=== PATIENT | female | born 1985 | race Hispanic/Latino ===

== ENCOUNTER 2021-01-02 08:13 | Emergency (ER) | payer OTHER ==
[~2021-01-02] VITALS: Ht 165.1 cm; Wt 95.7 kg
[~2021-01-02 08:13] MED LIST: ACETAMINOPHEN-1 EAC1 PO; ALBUTEROL SULF8.5 GM INH; AMOXICILLIN500 MG PO; CRUTCH1 EACH; CYCLOBENZAPRINE10 MG PO; CYCLOBENZAPRINE5 MG PO; EXCEDRIN MIGRA1 EAC2 PO; FIORINAL 50-321 EACH PO; HYDROCODON-ACE1 EAC8 PO; IBUPROFEN600 MG PO; NAPROXEN500 MG PO; NORCO 5-325 TA1 EACH PO; NORCO 7.5-3251 EACH PO; PERCOCET 5-3251 EACH PO; PREDNISONE20 MG PO; SULFACETAMIDE S15 ML OU; VENTOLIN HFA18 GM INH; VITAMIN D250000 UNIT PO; ZOFRAN4 MG PO
[2021-01-02] MEDS ORDERED: VENTOLIN HFA18 GM INH (08:31)
== END 2021-01-02 10:16 | disposition home or self-care (01) ==
LOC: ED 08:13
DX: O20.0 Threatened abortion (principal); Z3A.10 10 weeks gestation of pregnancy; O99.331 Smoking (tobacco) complicating pregnancy, first trimester; F17.200 Nicotine dependence, unspecified, uncomplicated; Z91.040 Latex allergy status
CPT/HCPCS: 76801; 76817; 80053; 81001; 84702; 85025; 86900; 86901; 99284-25